=== PATIENT | female | born 1975 | race Caucasian/White ===

== ENCOUNTER 2019-06-23 14:31 | Emergency (ER) | payer OTHER ==
[~2019-06-23] VITALS: Ht 175.3 cm; Wt 71.2 kg
--- NOTE | ~2019-06-23 | EMS ---
[facility] [address] [place] [address] EMS Patient Care Report Name: ROWDY MONTIEL Room #: REG LOW Barron#: [id number] Admission: 06/23/19 Attend Phys: Discharge: Date of : 73 Report #: [id number] THIS REPORT FOR: //name// Report Transmitted: 06/23/2019 15:20 EMS Care Summary [place], [place]/[facility] Incident [id number] @ 06/23/2019 13:53 Incident Location [address] [place] [address] Patient ROWDY A HERITAUNRULY Female, 43 Years 1975 Patient Address [address] [place] [address] Patient History Seizures,Neuropathy,Chronic Pain, Patient Allergies No known allergies, Patient Medications Baclofen, Gabapentin, Seroquel, Depakote, Zoloft, Acetaminophen, Ditropan, Clonazepam, Chief Complaint RIGHT LOWER QUADRANT ABDOMINAL PAIN Disposition Transported No Lights/[place] Reason Abdominal Pain/Problems Transported To [facility] Narrative [facility] was dispatched for to local correction for a patient with abdominal pain. Arrived on-scene to find 43 yo female patient laying in her bed. Patient [facility] [address] [place] [address] EMS Patient Care Report Name: ROWDY MONTIEL Room #: TONI Barron#: [id number] Admission: 06/23/19 Attend Phys: Discharge: Date of : 73 Report #: [id number] reported right lower quadrant abdominal pain that started this morning. Patient reported no other symptoms or GI complications. Patient's DPOA requested EMS transport to [facility] ED. Patient was difficult to communicate with which is normal. Patient was COA x4. Patient was in mild distress. Patient ABC's were intact. Patient was able to stand and ambulate without assistance but did have difficulty getting around. Patient had generalized weakness. Patient complained of right lower quadrant abdominal pain and held up 10 fingers to show pain scale. Patient denied headache, blurry vision, nausea, dizziness, syncope, jaw pain, neck pain, back pain, arm pain, chest pain or shortness of breath. Patient report was obtained. Patient was assisted to stretcher and secured with all safety straps in semi-fowlers position. Patient was taken and loaded into ambulance. Patient vitals were assessed. Patient was transported routine to [facility]. Patient was unloaded and taken to ED 2. Patient was assisted from stretcher to bed. Patient's RN signed for transport due to patient not being able to understand what EMS was saying and no capacity to make decisions. Patient's RN signed for receiving facility. Patient care and report turned over to RN. [facility] 30 returned to service. Initial Vitals @14:28P: 74,R: 14,BP: 114/76,Pain: 10/10,GCS: 15,SpO2: 99,Revised Trauma: 12, @14:15P: 70,R: 14,BP: 110/72,Pain: 10/10,GCS: 15,SpO2: 99,Revised Trauma: 12, Assessments @14:10MENTAL:Other,Person Oriented,Time Oriented,Place Oriented,Event Oriented,SKIN:HEENT:Eyes: Left Pupil: 4-mm,Eyes: Right Pupil: 4-mm,Head/Face: No Abnormalities,Neck/Airway: No Abnormalities,LUNG SOUNDS:Right Lower: Tenderness,Right Lower: Other,General: No Abnormalities,ABDOMEN:Right Lower: Tenderness,Right Lower: Other,General: No Abnormalities,PELVIS//GI:No Abnormalities,EXTREMITIES:Left Arm: Weakness,Right Arm: Weakness,Left Leg: Weakness,Capillary Refill: Right Upper: < 2 Sec,Capillary Refill: Left Upper: < 2 Sec,Right Leg: Weakness,PULSE:Radial: 2+ Normal,NEURO:No Abnormalities,@14:20MENTAL:Event Oriented,Place Oriented,Other,Person Oriented,Time Oriented,SKIN:HEENT:Eyes: Right Pupil: 4-mm,Eyes: Left Pupil: 4-mm,Head/Face: No Abnormalities,Neck/Airway: No Abnormalities,LUNG SOUNDS:Right Lower: Other,Right Lower: Tenderness,General: No Abnormalities,ABDOMEN:Right Lower: Other,Right Lower: Tenderness,General: No Abnormalities,PELVIS//GI:No Abnormalities,EXTREMITIES:Left Arm: Weakness,Right Leg: Weakness,Capillary Refill: Left Upper: < 2 Sec,Left Leg: Weakness,Right Arm: Weakness,Capillary Refill: Right Upper: < 2 Sec,PULSE:Radial: 2+ Normal,NEURO:No Abnormalities, Impression Abdominal Pain [facility] [address] [place] [address] EMS Patient Care Report Name: ROWDY MONTIEL Room #: REG LOW Barron#: [id number] Admission: 06/23/19 Attend Phys: Discharge: Date of : 73 Report #: [id number] Procedures @14:10ALS AssessmentResponse: UnchangedSucceeded@14:11StretcherResponse: Unchanged Timeline 13:51,Call Received 13:51,Dispatch Notified 13:53,Dispatched 13:54,En Route 14:05,On Scene 14:09,At Patient 14:10,ALS Assessment,Response: UnchangedSucceeded, 14:11,Stretcher,Response: Unchanged 14:15,BP: 110/72 M,PULSE: 70,RR: 14 R,SPO2: 99 Ox,ETCO2: ,BG: ,PAIN: 10,GCS: 15, 14:15,Depart Scene 14:28,BP: 114/76 M,PULSE: 73,RR: 14 R,SPO2: 99 Ox,ETCO2: ,BG: ,PAIN: 10,GCS: 15, 14:28,At Destination 15:09,Call Closed Disclaimer [email or web address] Copyright 2019 [email or web address] This EMS Care Summary contains data elements from the applicable legal record (which may be displayed differently). It is designed to provide pertinent information for the following purposes: continuity of care, clinical quality, and state data reporting. The complete legal record is available to ED staff and administrators of the receiving hospital in [facility]'s Patient Tracker. All data is provided "as is."
[~2019-06-23 14:31] MED LIST: ALEVE220 MG PO; BIOFREEZE118 ML; CLARITIN10 MG PO; DENTA 5000 PLUS51 GM; DEPAKOTE ER500 MG PO; DITROPAN XL5 M1 PO; DORYX150 MG PO; LEXAPRO20 MG PO; LINZESS145 MCG PO; LUNESTA3 MG PO; MILK OF MA2400 MG/10 PO; NASONEX17 GM NASAL; NASONEX17 GM NS; NEURONTIN600 MG PO; NUEDEXTA 20-101 EACH PO; QVAR HFA 440 MCG/UN1 INH; SEROQUEL 50 MG50 MG PO; TOFRANIL50 MG PO; VESICARE PO; VITAMIN D2000 UNIT PO
[2019-06-23 15:12] LABS: ABSOLUTE NEUTROPHILS 4.2 thou/uL (1.4-8.2); BASOPHILS 0.2 % (0.0-2.0); EOSINOPHILS 0.4 % (0.0-3.0); HEMATOCRIT 39.9 % (37.0-47.0); HEMOGLOBIN 13.5 gm/dL (12.0-15.0); MCH 31.8 pg (26.0-34.0); MCHC 33.9 g/dL (28.0-37.0); MCV 93.8 fL (80.0-100.0); MONOCYTES 5.4 % (1.0-8.0); PLATELET COUNT 123 thou/uL (150-400); RBC 4.25 mil/uL (4.20-5.00); RDW 13.6 % (10.5-14.5); WBC 5.5 thou/uL (4.0-11.0)
[2019-06-23 15:21] LABS: CALCIUM 9.5 mg/dL (8.5-10.1); CREATININE 0.8 mg/dL (0.6-1.0); POTASSIUM 3.7 mmol/L (3.5-5.1)
[2019-06-23 15:27] LABS: ALBUMIN 3.8 g/dL (3.4-5.0); TOTAL BILIRUBIN 0.2 mg/dL (<0.1-1.0); TOTAL PROTEIN 7.8 g/dL (6.4-8.2)
[2019-06-23] MEDS ORDERED: BACLOFEN 10MG T10 MG PO (16:13)
[2019-06-23 16:33] LABS: URINE BILIRUBIN NEGATIVE (Negative); URINE BLOOD 3+ (Negative); URINE CLARITY CLEAR; URINE COLOR YELLOW; URINE GLUCOSE-RANDOM* NEGATIVE (Negative); URINE KETONES NEGATIVE (Negative); URINE LEUKOCYTES-REFLEX 2+ (Negative); URINE NITRITE-REFLEX POSITIVE (Negative); URINE PROTEIN (DIPSTICK) TRACE (Negative); URINE UROBILINOGEN 0.2 E.U./dl (0.2-1.0)
[2019-06-23 16:42] LABS: CASTS None Seen /LPF (None Seen); SQUAMOUS 0-3 Few /LPF (0-3); URINE WBC-REFLEX 6-15 Few /HPF (0-5)
[2019-06-23 16:43] LABS: CRYSTALS None Seen /LPF (None Seen); URINE RBC 0-2 Rare /HPF (0-2)
[2019-06-23 19:25] VITALS: BP 112/77
== END 2019-06-23 19:26 | disposition short-term general hospital (02) ==
LOC: ER 14:31
PROVIDERS: Emergency Medicine
DX: N20.0 Calculus of kidney (principal); N39.0 Urinary tract infection, site not specified; Z88.2 Allergy status to sulfonamides